=== PATIENT | male | born 1965 | race Asian ===

== ENCOUNTER → 2023-09-27 07:35 | Outpatient (REF) | payer BC, SELFPAY ==
[2023-09-27 08:50] LABS: % Basophils 1.1 % (0-2); % Immature Granulocytes 0.3 % (0-0.5); % Lymphocytes 21.5 % (20.5-51.1); % Neutrophils 61.1 % (42.2-75.2); Absolute Eosinophils 0.1 10^3/uL (0-0.7); Absolute Lymphocytes 0.8 10^3/uL (1.2-3.4); Absolute Monocytes 0.5 10^3/uL (0.1-0.6); Absolute Neutrophils 2.2 10^3/uL (1.4-6.5); Hematocrit 44.1 % (39.0-52.0); Hemoglobin 14.9 g/dL (13.0-18.0); Mean Corp Hgb Conc. 33.8 g/dL (33.0-37.0); Mean Corpuscular Hgb 29.2 pg (27.0-31.0); Mean Corpuscular Volume 86.3 fL (80.0-94.0); Mean Platelet Volume 9.7 fL (7.4-10.4); Nucleated Red Blood Cells % 0 % (-); Platelet Count 186 10^3/uL (130-400); Red Blood Cell Count 5.11 10^6/uL (4.70-6.10); Red Cell Dist. Width 13.3 % (11.5-14.5); White Blood Cell Count 3.6 10^3/uL (4.8-10.8)
[2023-09-27 11:15] LABS: ALT (SGPT) 20 U/L (0-50); AST (SGOT) 33 U/L (17-59); Alkaline Phosphatase 72 U/L (38-126); Blood Urea Nitrogen 16 mg/dl (9-20); Calcium 9.9 mg/dl (8.4-10.2); Carbon Dioxide 20 mmol/L (22-30); Chloride 105 mmol/L (98-107); Glucose 115 mg/dl (70-99); Magnesium 1.9 mg/dl (1.6-2.3); Potassium 4.7 mmol/L (3.5-5.1); Sodium 136 mmol/L (135-145); Total Bilirubin 0.9 mg/dl (0.2-1.3); Total Protein 7.7 g/dl (6.3-8.2); eGFR > 60.00
[2023-09-29 16:53] LABS: Tacrolimus (Prograft - FK506) 4.4 ng/mL
== END ==
LOC: REG 07:35
PROVIDERS: ATTENDING PHYSICIAN Specialist; FAMILY PHYSICIAN Family Medicine
DX: D63.1 Anemia in chronic kidney disease (principal); I10 Essential (primary) hypertension; N25.81 Secondary hyperparathyroidism of renal origin; Z94.0 Kidney transplant status
CPT/HCPCS: 36415; 80053; 80197; 83735; 85025

== ENCOUNTER → 2024-03-23 07:28 | Outpatient (REF) | payer BC, SELFPAY ==
[2024-03-23 08:45] LABS: % Basophils 1.1 % (0-2); % Eosinophils 3.8 % (0-6); % Immature Granulocytes 0.3 % (0-0.5); % Lymphocytes 20.3 % (20.5-51.1); % Monocytes 14.1 % (1.7-9.3); % Neutrophils 60.4 % (42.2-75.2); Absolute Eosinophils 0.1 10^3/uL (0-0.7); Absolute Lymphocytes 0.8 10^3/uL (1.2-3.4); Absolute Monocytes 0.5 10^3/uL (0.1-0.6); Absolute Neutrophils 2.2 10^3/uL (1.4-6.5); Hematocrit 42.3 % (39.0-52.0); Hemoglobin 14.7 g/dL (13.0-18.0); Mean Corp Hgb Conc. 34.8 g/dL (33.0-37.0); Mean Corpuscular Hgb 29.5 pg (27.0-31.0); Mean Corpuscular Volume 84.9 fL (80.0-94.0); Mean Platelet Volume 9.6 fL (7.4-10.4); Nucleated Red Blood Cells % 0 % (-); Platelet Count 186 10^3/uL (130-400); Red Blood Cell Count 4.98 10^6/uL (4.70-6.10); Red Cell Dist. Width 13.7 % (11.5-14.5); White Blood Cell Count 3.7 10^3/uL (4.8-10.8)
[2024-03-23 09:25] LABS: ALT (SGPT) 20 U/L (0-50); AST (SGOT) 32 U/L (17-59); Albumin 4.9 g/dl (3.5-5.0); Alkaline Phosphatase 62 U/L (38-126); Blood Urea Nitrogen 21 mg/dl (9-20); Calcium 10.4 mg/dl (8.4-10.2); Carbon Dioxide 26 mmol/L (22-30); Chloride 102 mmol/L (98-107); Glucose 157 mg/dl (70-99); Magnesium 1.8 mg/dl (1.6-2.3); Potassium 5.1 mmol/L (3.5-5.1); Sodium 140 mmol/L (135-145); Total Protein 7.2 g/dl (6.3-8.2); eGFR > 60.00
[2024-03-23 09:27] LABS: Urine Albumin Negative (Neg - Trace); Urine Bilirubin Negative (Negative); Urine Character Clear (Clear); Urine Color Yellow; Urine Glucose Negative (Negative); Urine Ketone Negative (Negative); Urine Leukocyte Negative (Negative); Urine Nitrite Negative (Negative); Urine Occult Blood Negative (Negative); Urine Specific Gravity 1.005 (<1.030); Urine Urobilinogen Negative (Neg - 1+); Urine pH 6.5 (5.0-9.0)
[2024-03-25 18:47] LABS: Tacrolimus (Prograft - FK506) 5.6 ng/mL
== END ==
LOC: REG 07:28
PROVIDERS: ATTENDING PHYSICIAN Specialist; FAMILY PHYSICIAN Family Medicine
DX: N18.4 Chronic kidney disease, stage 4 (severe) (principal); D63.1 Anemia in chronic kidney disease; I10 Essential (primary) hypertension; D64.9 Anemia, unspecified; N18.6 End stage renal disease; Z94.0 Kidney transplant status
CPT/HCPCS: 36415; 80053; 80197; 81003; 83735; 85025

== ENCOUNTER → 2024-09-11 07:05 | Outpatient (REF) | payer BC, SELFPAY ==
[2024-09-11 07:53] LABS: % Basophils 0.8 % (0-2); % Eosinophils 2.9 % (0-6); % Immature Granulocytes 0.2 % (0-0.5); % Lymphocytes 13.7 % (20.5-51.1); % Monocytes 9.4 % (1.7-9.3); Absolute Eosinophils 0.2 10^3/uL (0-0.7); Absolute Lymphocytes 0.7 10^3/uL (1.2-3.4); Absolute Monocytes 0.5 10^3/uL (0.1-0.6); Absolute Neutrophils 3.7 10^3/uL (1.4-6.5); Hematocrit 42.9 % (39.0-52.0); Hemoglobin 14.3 g/dL (13.0-18.0); Mean Corp Hgb Conc. 33.3 g/dL (33.0-37.0); Mean Corpuscular Hgb 28.4 pg (27.0-31.0); Mean Corpuscular Volume 85.3 fL (80.0-94.0); Mean Platelet Volume 9.1 fL (7.4-10.4); Nucleated Red Blood Cells % 0 % (-); Platelet Count 185 10^3/uL (130-400); Red Blood Cell Count 5.03 10^6/uL (4.70-6.10); Red Cell Dist. Width 13.7 % (11.5-14.5); White Blood Cell Count 5.1 10^3/uL (4.8-10.8)
[2024-09-11 08:57] LABS: Calcium 10.1 mg/dl (8.4-10.2)
[2024-09-11 09:02] LABS: ALT (SGPT) 22 U/L (0-50); AST (SGOT) 30 U/L (17-59); Albumin 5.3 g/dl (3.5-5.0); Alkaline Phosphatase 67 U/L (38-126); Blood Urea Nitrogen 28 mg/dl (9-20); Calcium 9.9 mg/dl (8.4-10.2); Carbon Dioxide 25 mmol/L (22-30); Chloride 99 mmol/L (98-107); Glucose 197 mg/dl (70-99); Phosphorus 2.9 mg/dl (2.5-4.5); Potassium 4.6 mmol/L (3.5-5.1); Sodium 137 mmol/L (135-145); Total Bilirubin 0.9 mg/dl (0.2-1.3); Total Cholesterol 224 mg/dl (50-199); Total Protein 7.7 g/dl (6.3-8.2); Triglyceride 46 mg/dl (10-149); Very Low Density Lipoprotein 9 mg/dl (0-30); eGFR > 60.00
[2024-09-11 09:03] LABS: PSA, Total - Screen 3.03 ng/ml (0.0-4.0)
[2024-09-11 09:11] LABS: HDL Cholesterol 110 mg/dl; LDL Cholesterol, Calculated 105 mg/dl
[2024-09-11 11:04] LABS: Glycohemoglobin (HgbA1c) 7.1 % (4.0-5.6)
[2024-09-12 22:06] LABS: Tacrolimus (Prograft - FK506) 5.2 ng/mL
[2024-09-13 15:27] LABS: BK Qnt NAAT IU/mL, Plasma Not Detected; BK Qnt NAAT Interp, Plasma Not Detected (Not Detected); BK Qnt NAAT log IU/mL, Plasma Not Detected log IU/mL
== END ==
LOC: REG 07:05
PROVIDERS: ATTENDING PHYSICIAN Specialist; FAMILY PHYSICIAN Family Medicine
DX: R97.20 Elevated prostate specific antigen [PSA] (principal); I10 Essential (primary) hypertension; E11.22 Type 2 diabetes mellitus with diabetic chronic kidney disease; Z94.0 Kidney transplant status; Z12.5 Encounter for screening for malignant neoplasm of prostate; D63.1 Anemia in chronic kidney disease; N18.4 Chronic kidney disease, stage 4 (severe); E08.21 Diabetes mellitus due to underlying condition with diabetic nephropathy; B34.8 Other viral infections of unspecified site
CPT/HCPCS: 36415; 80053; 80061; 80197; 83036; 83970; 84100; 85025; 87799; G0103

== ENCOUNTER → 2025-03-27 06:46 | Outpatient (REF) | payer BC, SELFPAY ==
[2025-03-27 07:44] LABS: Hematocrit 38.8 % (39.0-52.0); Hemoglobin 13.2 g/dL (13.0-18.0); Mean Corp Hgb Conc. 34.0 g/dL (33.0-37.0); Mean Corpuscular Volume 83.6 fL (80.0-94.0); Nucleated Red Blood Cells % 0 % (-); Platelet Count 218 10^3/uL (130-400); Red Cell Dist. Width 13.2 % (11.5-14.5)
[2025-03-27 07:53] LABS: ALT (SGPT) 19 U/L (0-50); AST (SGOT) 25 U/L (17-59); Albumin 4.4 g/dl (3.5-5.0); Alkaline Phosphatase 51 U/L (38-126); Blood Urea Nitrogen 20 mg/dl (9-20); Calcium 9.5 mg/dl (8.4-10.2); Carbon Dioxide 27 mmol/L (22-30); Chloride 104 mmol/L (98-107); Glucose 208 mg/dl (70-99); Potassium 4.3 mmol/L (3.5-5.1); Sodium 135 mmol/L (135-145); Total Protein 6.7 g/dl (6.3-8.2); eGFR > 60.00
[2025-03-29 01:22] LABS: BK Qnt NAAT IU/mL, Plasma Not Detected; BK Qnt NAAT Interp, Plasma Not Detected (Not Detected); BK Qnt NAAT log IU/mL, Plasma Not Detected log IU/mL
[2025-03-29 15:46] LABS: Tacrolimus (Prograft - FK506) 4.5 ng/mL
[2025-03-29 20:10] LABS: BK Qnt NAAT IU/mL, Urine 26100 IU/mL; BK Qnt NAAT Interp, Urine Detected (Not Detected); BK Qnt NAAT log IU/mL, Urine 4.42 log IU/mL
== END ==
LOC: REG 06:46
PROVIDERS: ATTENDING PHYSICIAN Specialist
DX: I10 Essential (primary) hypertension (principal); Z94.0 Kidney transplant status; B34.8 Other viral infections of unspecified site
CPT/HCPCS: 36415; 80053; 80197; 85025; 87799

== ENCOUNTER → 2025-07-02 07:45 | Outpatient (REF) | payer BC, SELFPAY ==
[2025-07-02 08:50] LABS: Hematocrit 40.6 % (39.0-52.0); Hemoglobin 13.8 g/dL (13.0-18.0); Mean Corp Hgb Conc. 34.0 g/dL (33.0-37.0); Mean Corpuscular Volume 83.9 fL (80.0-94.0); Nucleated Red Blood Cells % 0 % (-); Platelet Count 202 10^3/uL (130-400); Red Cell Dist. Width 13.3 % (11.5-14.5)
[2025-07-02 10:21] LABS: Glycohemoglobin (HgbA1c) 7.6 % (4.0-5.9)
[2025-07-02 10:30] LABS: ALT (SGPT) 21 U/L (0-50); AST (SGOT) 29 U/L (17-59); Albumin 4.8 g/dl (3.5-5.0); Alkaline Phosphatase 57 U/L (38-126); Blood Urea Nitrogen 22 mg/dl (9-20); Calcium 10.0 mg/dl (8.4-10.2); Carbon Dioxide 26 mmol/L (22-30); Chloride 100 mmol/L (98-107); Glucose 178 mg/dl (70-99); HDL Cholesterol 86 mg/dl; LDL Cholesterol, Calculated 122 mg/dl; Magnesium 1.7 mg/dl (1.6-2.3); Potassium 4.5 mmol/L (3.5-5.1); Sodium 135 mmol/L (135-145); Total Protein 7.4 g/dl (6.3-8.2); Very Low Density Lipoprotein 8 mg/dl (0-30); eGFR > 60.00
[2025-07-02 10:40] LABS: PSA, Total - Screen 2.97 ng/ml (0.0-4.0); TSH 0.95 uIU/ml (0.47-4.68)
[2025-07-04 19:37] LABS: Tacrolimus (Prograft - FK506) 5.0 ng/mL
== END ==
LOC: REG 07:45
PROVIDERS: ATTENDING PHYSICIAN Specialist; FAMILY PHYSICIAN Family Medicine
DX: Z94.0 Kidney transplant status (principal); I10 Essential (primary) hypertension; E08.21 Diabetes mellitus due to underlying condition with diabetic nephropathy; E11.22 Type 2 diabetes mellitus with diabetic chronic kidney disease; N25.81 Secondary hyperparathyroidism of renal origin
CPT/HCPCS: 36415; 80053; 80061; 80197; 82570; 83036; 83735; 84156; 84443; 85025; G0103